=== PATIENT | male | born 1965 | race Caucasian/White ===

== ENCOUNTER 2020-06-27 17:46 | Emergency (ER) | payer OTHER ==
[2020-06-27] MEDS ORDERED: MORPHINE SULFATE 4 MG/ML SYRINGE IVP STA (17:57)
[2020-06-27] MEDS ORDERED: LORazepam 2 MG/ML INJ IV STA ×2 (17:57→18:06)
[2020-06-27] MEDS ORDERED: SODIUM CHLORIDE 0.9% 1,000 ML IV STA ×2 (17:57)
[2020-06-27] MEDS ORDERED: SODIUM CHLORIDE 0.9% 500 ML 500 ML IV STA (17:57)
--- NOTE | 2020-06-27 17:59 | ED ---
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) Previous Visits for Alcohol Intoxication?: No Recent Trauma: Yes Associated Symptoms: denies other symptoms Treatments Prior to Arrival: none Chronic Alcohol Use: Yes <Eusebio Smith - Last Filed: 06/27/20 17:58> <Rafael Thompson - Last Filed: 06/28/20 00:28> - General Stated Complaint: Arm Lac Time Seen by Provider: 06/27/20 17:50 - History of Present Illness Initial Comments: This is a 55-year-old male brought in by EMS, patient significantly intoxicated so poor story for EMS to be patient may have felt to some sort of 10 patient continues to say door or a TV, patient again is intoxicated and has significant laceration to his right wrist bleeding was originally pretty profuse per EMS but is now controlled (Eusebio Smith) - Related Data Home Medications Medication Instructions Recorded Confirmed carBAMazepine [TEGretol] 200 mg PO TID 03/24/15 06/27/20 traMADol HCl [Ultram] 50 - 100 mg PO TID PRN 03/24/15 06/27/20 Atorvastatin Calcium [Lipitor] 40 mg PO DAILY 06/27/20 06/27/20 Citalopram Hydrobromide [CeleXA] 40 mg PO DAILY 06/27/20 06/27/20 Levothyroxine Sodium [Synthroid] 75 mcg PO DAILY 06/27/20 06/27/20 QUEtiapine FUMARATE [QUEtiapine 400 mg PO DAILY 06/27/20 06/27/20 FUMARATE ER] Allergies Allergy/AdvReac Type Severity Reaction Status Date / Time No Known Allergies Allergy Verified 06/27/20 21:34 Review of Systems ROS Other: All systems not noted in ROS Statement are negative. <Eusebio Smith - Last Filed: 06/27/20 17:58> ROS Other: All systems not noted in ROS Statement are negative. <Rafael Thompson - Last Filed: 06/28/20 00:28> ROS Statement: Those systems with pertinent positive or pertinent negative responses have been documented in the HPI. Past Medical History Past Medical History: Hyperlipidemia, Hypertension Additional Past Medical History / Comment(s): arthritis History of Any Multi-Drug Resistant Organisms: None Reported Past Surgical History: Appendectomy Additional Past Surgical History / Comment(s): left hand surgery Past Psychological History: Anxiety, Bipolar, Depression Past Alcohol Use History: None Reported Past Drug Use History: None Reported <Eusebio Smith - Last Filed: 06/27/20 17:58> General Exam General appearance: alert, in no apparent distress Head exam: Present: atraumatic, normocephalic, normal inspection Eye exam: Present: normal appearance, PERRL, EOMI. Absent: scleral icterus, conjunctival injection, periorbital swelling ENT exam: Present: normal exam, mucous membranes moist Neck exam: Present: normal inspection. Absent: tenderness, meningismus, lymphadenopathy Respiratory exam: Present: normal lung sounds bilaterally. Absent: respiratory distress, wheezes, rales, rhonchi, stridor Cardiovascular Exam: Present: regular rate, normal rhythm, normal heart sounds. Absent: systolic murmur, diastolic murmur, rubs, gallop, clicks GI/Abdominal exam: Present: soft, normal bowel sounds. Absent: distended, tenderness, guarding, rebound, rigid Extremities exam: Present: normal inspection, full ROM, normal capillary refill. Absent: tenderness, pedal edema, joint swelling, calf tenderness Back exam: Present: normal inspection Neurological exam: Present: alert, oriented X3, CN II-XII intact Psychiatric exam: Present: normal affect, normal mood Skin exam: Present: warm, dry, intact, normal color. Absent: rash <Eusebio Smith - Last Filed: 06/27/20 17:58> - General Exam Comments Initial Comments: 4 cm laceration to right wrist (Eusebio Smith) Course <Eusebio Smith - Last Filed: 06/27/20 17:58> <Rafael Thompson - Last Filed: 06/28/20 00:28> Vital Signs 06/27/20 06/27/20 06/27/20 17:49 19:15 20:15 Temperature 97.9 F Pulse Rate 98 108 H Respiratory 19 19 17 Rate Blood Pressure 117/97 98/66 101/66 O2 Sat by Pulse 97 99 100 Oximetry 06/27/20 06/27/20 06/27/20 21:04 22:00 23:00 Temperature Pulse Rate 98 100 98 Respiratory 17 18 19 Rate Blood Pressure 99/61 106/69 120/67 O2 Sat by Pulse 100 100 99 Oximetry 06/28/20 00:00 Temperature Pulse Rate 98 Respiratory 19 Rate Blood Pressure 105/72 O2 Sat by Pulse 100 Oximetry - Reevaluation(s) Reevaluation #1: 06/27/20 17:58 Medical records reviewed (Eusebio Smith) Reevaluation #2: 06/28/20 00:27 I was asked to enter the patient's disposition as Dr. Smith Had signed out of his computer. No other interaction (Rafael Thompson) Medical Decision Making - Lab Data Result diagrams: 06/27/20 18:02 06/27/20 18:02 <Rafael Thompson - Last Filed: 06/28/20 00:28> - Lab Data Lab Results 06/27/20 06/27/20 Range/Units 18:02 18:02 WBC 13.8 H (3.8-10.6) k/uL RBC 3.32 L (4.30-5.90) m/uL Hgb 11.7 L (13.0-17.5) gm/dL Hct 36.0 L (39.0-53.0) % MCV 108.5 H (80.0-100.0) fL MCH 35.3 H (25.0-35.0) pg MCHC 32.5 (31.0-37.0) g/dL RDW 12.8 (11.5-15.5) % Plt Count 116 L (150-450) k/uL Neutrophils % 84 % Lymphocytes % 10 % Monocytes % 5 % Eosinophils % 1 % Basophils % 0 % Neutrophils # 11.6 H (1.3-7.7) k/uL Lymphocytes # 1.4 (1.0-4.8) k/uL Monocytes # 0.6 (0-1.0) k/uL Eosinophils # 0.1 (0-0.7) k/uL Basophils # 0.0 (0-0.2) k/uL Macrocytosis Moderate Sodium 143 (137-145) mmol/L Potassium 3.9 (3.5-5.1) mmol/L Chloride 113 H (98-107) mmol/L Carbon Dioxide 18 L (22-30) mmol/L Anion Gap 12 mmol/L BUN 16 (9-20) mg/dL Creatinine 1.04 (0.66-1.25) mg/dL Est GFR (CKD-EPI)AfAm >90 (>60 ml/min/1.73 sqM) Est GFR (CKD-EPI)NonAf 80 (>60 ml/min/1.73 sqM) Glucose 104 H (74-99) mg/dL Calcium 8.2 L (8.4-10.2) mg/dL Phosphorus 4.1 (2.5-4.5) mg/dL Magnesium 2.0 (1.6-2.3) mg/dL Total Bilirubin 0.6 (0.2-1.3) mg/dL AST 50 (17-59) U/L ALT 37 (4-49) U/L Alkaline Phosphatase 99 (38-126) U/L Total Protein 6.2 L (6.3-8.2) g/dL Albumin 3.8 (3.5-5.0) g/dL Lipase 97 (23-300) U/L Serum Alcohol 130 mg/dL Disposition <Eusebio Smith - Last Filed: 06/27/20 17:58> Is patient prescribed a controlled substance at d/c from ED?: No <Rafael Thompson - Last Filed: 06/28/20 00:28> Clinical Impression: Laceration, Alcohol intoxication Disposition: HOME SELF-CARE Condition: Fair Instructions (If sedation given, give patient instructions): Laceration (DC), Alcohol Intoxication (ED) Referrals: None,Stated [Primary Care Provider] - 1-2 days
[2020-06-27 18:14] LABS: Basophils % (A) 0 %; Eosinophils # (A) 0.1 k/uL (0-0.7); Eosinophils % (A) 1 %; HGB 11.7 gm/dL (13.0-17.5); Lymphocytes # (A) 1.4 k/uL (1.0-4.8); Lymphocytes % (A) 10 %; MCH 35.3 pg (25.0-35.0); MCHC 32.5 g/dL (31.0-37.0); MCV 108.5 fL (80.0-100.0); Macrocytosis Moderate; Mean Platelet Volume 8.9; Monocytes # (A) 0.6 k/uL (0-1.0); Monocytes % (A) 5 %; Neutrophils # (A) 11.6 k/uL (1.3-7.7); Neutrophils % (A) 84 %; Platelet Count 116 k/uL (150-450); RBC 3.32 m/uL (4.30-5.90); RDW 12.8 % (11.5-15.5); WBC 13.8 k/uL (3.8-10.6)
[2020-06-27 18:22] LABS: ALT 37 U/L (4-49); AST 50 U/L (17-59); African American GFR (CKD) >90 (>60 ml/min/1.73 sqM); Albumin 3.8 g/dL (3.5-5.0); Alkaline Phosphatase 99 U/L (38-126); Anion Gap 12 mmol/L; Blood Urea Nitrogen 16 mg/dL (9-20); Calcium 8.2 mg/dL (8.4-10.2); Carbon Dioxide 18 mmol/L (22-30); Chloride 113 mmol/L (98-107); Glucose 104 mg/dL (74-99); Lipase 97 U/L (23-300); Non-African American GFR(CKD) 80 (>60 ml/min/1.73 sqM); Phosphorus 4.1 mg/dL (2.5-4.5); Potassium 3.9 mmol/L (3.5-5.1); Sodium 143 mmol/L (137-145); Total Bilirubin 0.6 mg/dL (0.2-1.3); Total Protein 6.2 g/dL (6.3-8.2)
[2020-06-27 18:27] LABS: Alcohol 130 mg/dL
--- NOTE | 2020-06-27 18:37 | XR ---
EXAMINATION TYPE: XR wrist complete RT DATE OF EXAM: 06/27/2020 COMPARISON: NONE HISTORY: Pain TECHNIQUE: 4 views FINDINGS: There is some spurring at the first carpometacarpal joint. There is narrowing of the scapho id trapezium joint space. Metacarpals appear intact. Distal radius and ulna appear intact. 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 No fracture seen. No evidence of a fo reign body.
[2020-06-27] MEDS ORDERED: LIDOCAINE 1%-EPI 1:100,000 20 ML VIAL SQ STA (20:05)
[2020-06-28 01:08] VITALS: BP 112/63; PULSE 99; RESP 18; TEMP 98.1
== END 2020-06-28 01:00 | disposition home or self-care (01) ==
LOC: EC 17:46
DX: S61.511A Laceration without foreign body of right wrist, initial encounter (principal); F10.129 Alcohol abuse with intoxication, unspecified; E78.5 Hyperlipidemia, unspecified; F32.9 Major depressive disorder, single episode, unspecified; F41.9 Anxiety disorder, unspecified; Y90.9 Presence of alcohol in blood, level not specified; Z79.899 Other long term (current) drug therapy; Z79.890 Hormone replacement therapy
CPT/HCPCS: 80053; 83690; 83735; 84100; 85025; 73110; 99284; 96374; 96375; 96361; G0480; J2060; J2270; 80320

== ENCOUNTER 2021-01-27 03:53 | Observation (INO) | payer OTHER ==
[2021-01-27] MEDS ORDERED: SODIUM CHLORIDE 0.9% 500 ML 500 ML IV STA (03:56)
[2021-01-27] MEDS ORDERED: ONDANSETRON 4 MG/2 ML VIAL IVP STA (03:56)
[2021-01-27] MEDS ORDERED: LORazepam 2 MG/ML INJ IV PRN ×3 (03:56)
[2021-01-27] MEDS ORDERED: SODIUM CHLORIDE 0.9% 1,000 ML IV STA ×3 (03:56→05:26)
[2021-01-27] MEDS ORDERED: DIAZEPAM 5 MG/ML 2 ML INJ IVP STA (03:57)
--- NOTE | 2021-01-27 03:58 | ED ---
Weakness HPI - General Stated complaint: Chest Pain Time Seen by Provider: 01/27/21 03:56 Source: RN notes reviewed, old records reviewed Limitations: no limitations - History of Present Illness Initial comments: This is a 55-year-old male DF for evaluation patient presents today for evaluation of nausea vomiting dehydration weakness and alcohol abuse. Patient states he can keep anything down feels very shaky lightheaded. Patient has no recent travel history or sick contacts. Please that he is withdrawing from alcohol MD Complaint: generalized weakness -: days(s) Location: generalized Severity: moderate Severity scale (1-10): 6 Consistency: constant Improves with: none Worsens with: none Context: recent illness, history of similar Associated Symptoms: confusion, loss of appetite, nausea/vomiting - Related Data Home Medications Medication Instructions Recorded Confirmed carBAMazepine [TEGretol] 200 mg PO TID 03/24/15 01/27/21 Atorvastatin Calcium [Lipitor] 40 mg PO HS 06/27/20 01/27/21 Levothyroxine Sodium [Synthroid] 75 mcg PO DAILY 06/27/20 01/27/21 QUEtiapine FUMARATE [QUEtiapine 400 mg PO HS 06/27/20 01/27/21 FUMARATE ER] Previous Rx's Medication Instructions Recorded LORazepam [Ativan] 0.5 mg PO TID 3 Days #9 tab 01/28/21 Pantoprazole [Protonix] 40 mg PO [id number] tablet. 01/28/21 Thiamine [Vitamin B-1] 100 mg PO BID-W/MEALS tab 01/28/21 Allergies Allergy/AdvReac Type Severity Reaction Status Date / Time No Known Allergies Allergy Verified 01/27/21 07:12 Review of Systems ROS Statement: Those systems with pertinent positive or pertinent negative responses have been documented in the HPI. ROS Other: All systems not noted in ROS Statement are negative. Past Medical History Past Medical History: Hyperlipidemia, Hypertension Additional Past Medical History / Comment(s): arthritis History of Any Multi-Drug Resistant Organisms: None Reported Past Surgical History: Appendectomy Additional Past Surgical History / Comment(s): left hand surgery Past Psychological History: Anxiety, Bipolar, Depression Past Alcohol Use History: None Reported Past Drug Use History: None Reported - Past Family History Father Family Medical History: No Reported History Mother Family Medical History: CVA/TIA Additional Family Medical History / Comment(s): Mother had a CVA. She lived into her 90s. General Exam General appearance: anxious, cachectic Head exam: Present: atraumatic, normocephalic, normal inspection Eye exam: Present: normal appearance, PERRL, EOMI. Absent: scleral icterus, conjunctival injection, periorbital swelling ENT exam: Present: normal exam, mucous membranes dry Neck exam: Present: normal inspection. Absent: tenderness, meningismus, lymphadenopathy Respiratory exam: Present: normal lung sounds bilaterally. Absent: respiratory distress, wheezes, rales, rhonchi, stridor Cardiovascular Exam: Present: normal rhythm, tachycardia, normal heart sounds. Absent: systolic murmur, diastolic murmur, rubs, gallop, clicks GI/Abdominal exam: Present: soft, normal bowel sounds. Absent: distended, tenderness, guarding, rebound, rigid Extremities exam: Present: normal inspection, full ROM, normal capillary refill. Absent: tenderness, pedal edema, joint swelling, calf tenderness Back exam: Present: normal inspection Neurological exam: Present: alert, oriented X3, CN II-XII intact Psychiatric exam: Present: normal affect, normal mood Skin exam: Present: warm, dry, intact, normal color. Absent: rash Course Vital Signs 01/27/21 01/27/21 01/27/21 04:06 04:19 04:21 Temperature 98.2 F Pulse Rate 106 H 109 H Pulse Rate [ Pulse Oximetery ] Pulse Rate [ 106 H Right Brachial] Respiratory 21 20 Rate Blood Pressure 98/80 115/94 Blood Pressure [Right Arm] O2 Sat by Pulse 100 100 Oximetry 01/27/21 01/27/21 01/27/21 06:00 06:28 08:50 Temperature Pulse Rate 79 71 101 H Pulse Rate [ Pulse Oximetery ] Pulse Rate [ Right Brachial] Respiratory 18 15 18 Rate Blood Pressure 139/89 128/78 118/87 Blood Pressure [Right Arm] O2 Sat by Pulse 100 100 99 Oximetry 01/27/21 01/27/21 01/27/21 10:12 11:32 13:50 Temperature 98.3 F Pulse Rate 100 94 112 H Pulse Rate [ Pulse Oximetery ] Pulse Rate [ Right Brachial] Respiratory 18 18 18 Rate Blood Pressure 123/79 126/86 130/84 Blood Pressure [Right Arm] O2 Sat by Pulse 98 97 99 Oximetry 01/27/21 01/27/21 01/27/21 14:58 16:07 16:14 Temperature 98.9 F Pulse Rate 106 H Pulse Rate [ 91 Pulse Oximetery ] Pulse Rate [ Right Brachial] Respiratory 18 18 Rate Blood Pressure 139/88 Blood Pressure 133/81 [Right Arm] O2 Sat by Pulse 99 99 Oximetry - Reevaluation(s) Reevaluation #1: Medical record is reviewed Patient symptoms significantly improved here in the ER Patient informed results questions answered EKG Findings - EKG Comments: EKG Findings:: EKG shows sinus tachycardia 111, SC 126 QRS 76 QTC 546 Medical Decision Making - Medical Decision Making 55 male DF for evaluation of dehydration. Alcohol ketoacidosis. Severe alcohol intoxication. Patient be admitted for symptomatic treatment and IV hydration - Lab Data Result diagrams: 01/28/21 06:31 01/28/21 06:31 Lab Results 01/27/21 01/27/21 01/27/21 Range/Units 04:16 04:16 04:16 WBC 21.6 H (3.8-10.6) k/uL RBC 4.73 (4.30-5.90) m/uL Hgb 16.0 (13.0-17.5) gm/dL Hct 47.3 (39.0-53.0) % MCV 100.1 H (80.0-100.0) fL MCH 33.8 (25.0-35.0) pg MCHC 33.8 (31.0-37.0) g/dL RDW 13.1 (11.5-15.5) % Plt Count 254 (150-450) k/uL MPV 7.6 Neutrophils % 90 % Lymphocytes % 6 % Monocytes % 3 % Eosinophils % 0 % Basophils % 0 % Neutrophils # 19.5 H (1.3-7.7) k/uL Lymphocytes # 1.2 (1.0-4.8) k/uL Monocytes # 0.6 (0-1.0) k/uL Eosinophils # 0.1 (0-0.7) k/uL Basophils # 0.0 (0-0.2) k/uL PT 11.4 (9.0-12.0) sec INR 1.1 (<1.2) APTT 21.7 L (22.0-30.0) sec VBG pH (7.31-7.41) VBG pCO2 (37-51) mmHg VBG HCO3 (24-28) mmol/L Sodium (137-145) mmol/L Potassium (3.5-5.1) mmol/L Chloride (98-107) mmol/L Carbon Dioxide (22-30) mmol/L Anion Gap mmol/L BUN (9-20) mg/dL Creatinine (0.66-1.25) mg/dL Est GFR (CKD-EPI)AfAm (>60 ml/min/1.73 sqM) Est GFR (CKD-EPI)NonAf (>60 ml/min/1.73 sqM) Glucose (74-99) mg/dL Lactic Ac Sepsis Rflx Plasma Lactic Acid Rolf (0.7-2.0) mmol/L Calcium (8.4-10.2) mg/dL Phosphorus (2.5-4.5) mg/dL Magnesium (1.6-2.3) mg/dL Total Bilirubin (0.2-1.3) mg/dL AST (17-59) U/L ALT (4-49) U/L Alkaline Phosphatase (38-126) U/L Creatine Kinase (55-170) U/L Troponin I (0.000-0.034) ng/mL Total Protein (6.3-8.2) g/dL Albumin (3.5-5.0) g/dL Lipase (23-300) U/L Urine Color Yellow Urine Appearance Clear (Clear) Urine pH 6.5 (5.0-8.0) Ur Specific Mcdaniels 1.034 (1.001-1.035) Urine Protein 1+ H (Negative) Urine Glucose (UA) Negative (Negative) Urine Ketones 1+ H (Negative) Urine Blood Negative (Negative) Urine Nitrite Negative (Negative) Urine Bilirubin Negative (Negative) Urine Urobilinogen <2.0 (<2.0) mg/dL Ur Leukocyte Esterase Negative (Negative) Urine RBC 4 (0-5) /hpf Urine WBC 1 (0-5) /hpf Urine Mucus Rare H (None) /hpf Serum Alcohol mg/dL 01/27/21 01/27/21 01/27/21 Range/Units 04:16 04:16 04:16 WBC (3.8-10.6) k/uL RBC (4.30-5.90) m/uL Hgb (13.0-17.5) gm/dL Hct (39.0-53.0) % MCV (80.0-100.0) fL MCH (25.0-35.0) pg MCHC (31.0-37.0) g/dL RDW (11.5-15.5) % Plt Count (150-450) k/uL MPV Neutrophils % % Lymphocytes % % Monocytes % % Eosinophils % % Basophils % % Neutrophils # (1.3-7.7) k/uL Lymphocytes # (1.0-4.8) k/uL Monocytes # (0-1.0) k/uL Eosinophils # (0-0.7) k/uL Basophils # (0-0.2) k/uL PT (9.0-12.0) sec INR (<1.2) APTT (22.0-30.0) sec VBG pH (7.31-7.41) VBG pCO2 (37-51) mmHg VBG HCO3 (24-28) mmol/L Sodium 142 (137-145) mmol/L Potassium 4.3 (3.5-5.1) mmol/L Chloride 105 (98-107) mmol/L Carbon Dioxide 20 L (22-30) mmol/L Anion Gap 17 mmol/L BUN 12 (9-20) mg/dL Creatinine 0.81 (0.66-1.25) mg/dL Est GFR (CKD-EPI)AfAm >90 (>60 ml/min/1.73 sqM) Est GFR (CKD-EPI)NonAf >90 (>60 ml/min/1.73 sqM) Glucose 106 H (74-99) mg/dL Lactic Ac Sepsis Rflx Plasma Lactic Acid Rolf 5.2 H* (0.7-2.0) mmol/L Calcium 9.3 (8.4-10.2) mg/dL Phosphorus 2.6 (2.5-4.5) mg/dL Magnesium 1.7 (1.6-2.3) mg/dL Total Bilirubin 0.3 (0.2-1.3) mg/dL AST 62 H (17-59) U/L ALT 50 H (4-49) U/L Alkaline Phosphatase 124 (38-126) U/L Creatine Kinase 544 H (55-170) U/L Troponin I <0.012 (0.000-0.034) ng/mL Total Protein 7.6 (6.3-8.2) g/dL Albumin 4.8 (3.5-5.0) g/dL Lipase 105 (23-300) U/L Urine Color Urine Appearance (Clear) Urine pH (5.0-8.0) Ur Specific Mcdaniels (1.001-1.035) Urine Protein (Negative) Urine Glucose (UA) (Negative) Urine Ketones (Negative) Urine Blood (Negative) Urine Nitrite (Negative) Urine Bilirubin (Negative) Urine Urobilinogen (<2.0) mg/dL Ur Leukocyte Esterase (Negative) Urine RBC (0-5) /hpf Urine WBC (0-5) /hpf Urine Mucus (None) /hpf Serum Alcohol 14 mg/dL 01/27/21 01/27/21 Range/Units 04:16 05:28 WBC (3.8-10.6) k/uL RBC (4.30-5.90) m/uL Hgb (13.0-17.5) gm/dL Hct (39.0-53.0) % MCV (80.0-100.0) fL MCH (25.0-35.0) pg MCHC (31.0-37.0) g/dL RDW (11.5-15.5) % Plt Count (150-450) k/uL MPV Neutrophils % % Lymphocytes % % Monocytes % % Eosinophils % % Basophils % % Neutrophils # (1.3-7.7) k/uL Lymphocytes # (1.0-4.8) k/uL Monocytes # (0-1.0) k/uL Eosinophils # (0-0.7) k/uL Basophils # (0-0.2) k/uL PT (9.0-12.0) sec INR (<1.2) APTT (22.0-30.0) sec VBG pH 7.53 H (7.31-7.41) VBG pCO2 23 L (37-51) mmHg VBG HCO3 19 L (24-28) mmol/L Sodium (137-145) mmol/L Potassium (3.5-5.1) mmol/L Chloride (98-107) mmol/L Carbon Dioxide (22-30) mmol/L Anion Gap mmol/L BUN (9-20) mg/dL Creatinine (0.66-1.25) mg/dL Est GFR (CKD-EPI)AfAm (>60 ml/min/1.73 sqM) Est GFR (CKD-EPI)NonAf (>60 ml/min/1.73 sqM) Glucose (74-99) mg/dL Lactic Ac Sepsis Rflx Y Plasma Lactic Acid Rolf (0.7-2.0) mmol/L Calcium (8.4-10.2) mg/dL Phosphorus (2.5-4.5) mg/dL Magnesium (1.6-2.3) mg/dL Total Bilirubin (0.2-1.3) mg/dL AST (17-59) U/L ALT (4-49) U/L Alkaline Phosphatase (38-126) U/L Creatine Kinase (55-170) U/L Troponin I (0.000-0.034) ng/mL Total Protein (6.3-8.2) g/dL Albumin (3.5-5.0) g/dL Lipase (23-300) U/L Urine Color Urine Appearance (Clear) Urine pH (5.0-8.0) Ur Specific Mcdaniels (1.001-1.035) Urine Protein (Negative) Urine Glucose (UA) (Negative) Urine Ketones (Negative) Urine Blood (Negative) Urine Nitrite (Negative) Urine Bilirubin (Negative) Urine Urobilinogen (<2.0) mg/dL Ur Leukocyte Esterase (Negative) Urine RBC (0-5) /hpf Urine WBC (0-5) /hpf Urine Mucus (None) /hpf Serum Alcohol mg/dL Disposition Clinical Impression: Alcoholic ketoacidosis Disposition: ADMITTED IP TO THIS HOSP Condition: Fair Is patient prescribed a controlled substance at d/c from ED?: No
[2021-01-27] MEDS ORDERED: THIAMINE 100 MG/ML 2 ML VIAL IM STA (04:01)
[2021-01-27 04:26] LABS: Basophils % (A) 0 %; Eosinophils # (A) 0.1 k/uL (0-0.7); Eosinophils % (A) 0 %; HCT 47.3 % (39.0-53.0); Lymphocytes # (A) 1.2 k/uL (1.0-4.8); Lymphocytes % (A) 6 %; MCH 33.8 pg (25.0-35.0); MCHC 33.8 g/dL (31.0-37.0); MCV 100.1 fL (80.0-100.0); Mean Platelet Volume 7.6; Monocytes # (A) 0.6 k/uL (0-1.0); Monocytes % (A) 3 %; Neutrophils # (A) 19.5 k/uL (1.3-7.7); Neutrophils % (A) 90 %; Platelet Count 254 k/uL (150-450); RBC 4.73 m/uL (4.30-5.90); RDW 13.1 % (11.5-15.5); VBG PH 7.53 (7.31-7.41); WBC 21.6 k/uL (3.8-10.6)
[2021-01-27 04:38] LABS: ALT 50 U/L (4-49); AST 62 U/L (17-59); African American GFR (CKD) >90 (>60 ml/min/1.73 sqM); Albumin 4.8 g/dL (3.5-5.0); Alcohol 14 mg/dL; Alkaline Phosphatase 124 U/L (38-126); Anion Gap 17 mmol/L; Blood Urea Nitrogen 12 mg/dL (9-20); Calcium 9.3 mg/dL (8.4-10.2); Carbon Dioxide 20 mmol/L (22-30); Chloride 105 mmol/L (98-107); Creatine Kinase 544 U/L (55-170); Glucose 106 mg/dL (74-99); Lipase 105 U/L (23-300); Magnesium 1.7 mg/dL (1.6-2.3); Non-African American GFR(CKD) >90 (>60 ml/min/1.73 sqM); Phosphorus 2.6 mg/dL (2.5-4.5); Potassium 4.3 mmol/L (3.5-5.1); Sodium 142 mmol/L (137-145); Total Bilirubin 0.3 mg/dL (0.2-1.3); Total Protein 7.6 g/dL (6.3-8.2)
[2021-01-27 04:42] LABS: INR 1.1 (<1.2); Prothrombin Time 11.4 sec (9.0-12.0)
[2021-01-27 05:02] LABS: Partial Thromboplastin Time 21.7 sec (22.0-30.0)
[2021-01-27] MEDS ORDERED: KETOROLAC 15 MG/ML 1 ML VIAL IVP STA (05:26)
[2021-01-27] MEDS ORDERED: ACETAMINOPHEN IV (For NPO) 1,000 MG in EMPTY BAG 1 BAG IVPB STA (05:28)
--- NOTE | 2021-01-27 05:39 | XR ---
EXAM: XR Abdomen, 2 Views and XR Chest, 1 View CLINICAL HISTORY: Reason: pain TECHNIQUE: Frontal view of the chest, frontal view of the abdomen/pelvis and upright or decubitus view of the abdomen. COMPARISON: No relevant prior studies available. FINDINGS: Lungs: Normal lung volumes. No consolidation. No pulmonary edema. Pleural space: Unremarkable. No pneumothorax. Heart: Unremarkable. No cardiomegaly. Mediastinum: Unremarkable. No mediastinal widening or shift. Intraperitoneal space: No free air. Gastrointestinal tract: Unremarkable. No dilation. Bones/joints: Unremarkable. IMPRESSION: Normal chest, abdomen and pelvis x-rays.
[2021-01-27] MEDS ORDERED: MORPHINE SULFATE 4 MG/ML SYRINGE IV PRN (06:09)
[2021-01-27] MEDS: THIAMINE 100 MG TAB PO SCH ×2 (08:58→16:59)
[2021-01-27] MEDS: DEXTROSE 5%-0.45% NACL 1,000 ML IV SCH ×2 (08:59→16:59)
[2021-01-27 09:38] LABS: Basophils % (A) 0 %; Eosinophils % (A) 0 %; HCT 41.1 % (39.0-53.0); HGB 13.8 gm/dL (13.0-17.5); Lymphocytes # (A) 1.9 k/uL (1.0-4.8); Lymphocytes % (A) 14 %; MCH 34.4 pg (25.0-35.0); MCHC 33.6 g/dL (31.0-37.0); MCV 102.2 fL (80.0-100.0); Macrocytosis Slight; Mean Platelet Volume 7.8; Monocytes # (A) 0.7 k/uL (0-1.0); Monocytes % (A) 5 %; Neutrophils # (A) 11.2 k/uL (1.3-7.7); Neutrophils % (A) 81 %; Platelet Count 218 k/uL (150-450); RBC 4.02 m/uL (4.30-5.90); RDW 13.2 % (11.5-15.5); WBC 13.8 k/uL (3.8-10.6)
[2021-01-27 09:57] LABS: ALT 40 U/L (4-49); AST 46 U/L (17-59); African American GFR (CKD) >90 (>60 ml/min/1.73 sqM); Albumin 3.6 g/dL (3.5-5.0); Albumin/Globulin Ratio 1.4; Alkaline Phosphatase 93 U/L (38-126); Anion Gap 6 mmol/L; Blood Urea Nitrogen 12 mg/dL (9-20); Calcium 7.6 mg/dL (8.4-10.2); Carbon Dioxide 26 mmol/L (22-30); Chloride 110 mmol/L (98-107); Globulin 2.5 g/dL; Glucose 98 mg/dL (74-99); Non-African American GFR(CKD) >90 (>60 ml/min/1.73 sqM); Potassium 4.3 mmol/L (3.5-5.1); Sodium 142 mmol/L (137-145); Total Bilirubin 0.2 mg/dL (0.2-1.3); Total Protein 6.1 g/dL (6.3-8.2)
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
--- NOTE | 2021-01-27 12:42 | XR ---
EXAMINATION TYPE: XR chest 2V DATE OF EXAM: 01/27/2021 COMPARISON: 03/24/2015 INDICATION: Elevated white count and lactic acid TECHNIQUE: Single frontal view of the chest is obtained. FINDINGS: The heart size is normal. The pulmonary vasculature is normal. There is a large rounded nodule measuring 2.3 cm in the periphery of the right upper lung field near the third rib. Workup for pulmonary nodule is recommended. Some mild linear opacities are at the left lung base. IMPRESSION: 1. Mild left basilar infiltrate. Correlate for atelectasis. 2. Nodule within the periphery of the right upper lobe. Additional workup with CT is recommended.
[2021-01-27 15:15] LABS: Appearance,Urine Clear (Clear); Bilirubin,Urine Negative (Negative); Blood,Urine Negative (Negative); Color,Urine Yellow; Glucose,Urine (UA) Negative (Negative); Ketones,Urine 1+ (Negative); Leukocyte Esterase,Urine Negative (Negative); Mucus,Urine Rare /hpf; Nitrite,Urine Negative (Negative); PH, Urine 6.5 (5.0-8.0); Protein,Urine 1+ (Negative); RBC,Urine 4 /hpf (0-5); Specific Gravity,Urine 1.034 (1.001-1.035); Urobilinogen,Urine <2.0 mg/dL (<2.0); WBC,Urine 1 /hpf (0-5)
[2021-01-27] MEDS: ACETAMINOPHEN TAB 325 MG TAB PO PRN (16:59)
[2021-01-27] MEDS: carBAMazepine 200 MG TAB PO SCH (19:51)
[2021-01-27] MEDS: QUEtiapine 200 MG TAB PO SCH (19:51)
[2021-01-27] MEDS ORDERED: ATORVASTATIN 40 MG TAB PO SCH (21:00)
[2021-01-28] MEDS: DEXTROSE 5%-0.45% NACL 1,000 ML IV SCH (03:45)
[2021-01-28] MEDS ORDERED: LEVOTHYROXINE 75 MCG TAB PO SCH (06:30)
[2021-01-28] MEDS: ACETAMINOPHEN TAB 325 MG TAB PO PRN (07:28)
[2021-01-28] MEDS: THIAMINE 100 MG TAB PO SCH (07:28)
[2021-01-28] MEDS: QUEtiapine 200 MG TAB PO SCH (07:28)
[2021-01-28] MEDS: carBAMazepine 200 MG TAB PO SCH (07:28)
[2021-01-28] MEDS ORDERED: PANTOPRAZOLE 40 MG TABLET PO SCH (07:30)
[2021-01-28 08:12] VITALS: BP 120/68; PULSE 68; RESP 16; TEMP 97.9
[2021-01-28] MEDS ORDERED: ENOXAPARIN 40 MG/0.4 ML SYRINGE SQ SCH (09:00)
[2021-01-28 10:00] LABS: Basophils # (A) 0.04 X 10*3/uL (0.00-0.10); Basophils % (A) 0.5 %; Eosinophils # (A) 0.12 X 10*3/uL (0.04-0.35); Eosinophils % (A) 1.6 %; HCT 38.3 % (39.6-50.0); Lymphocytes # (A) 1.73 X 10*3/uL (0.90-5.00); Lymphocytes % (A) 22.5 %; MCH 34.2 pg (27.0-32.0); MCHC 33.9 g/dL (32.0-37.0); MCV 100.8 fL (80.0-97.0); Mean Platelet Volume 11.2 fL (9.5-12.2); Monocytes # (A) 0.77 X 10*3/uL (0.20-1.00); Neutrophils % (A) 65.1 %; Platelet Count 192 X 10*3/uL (140-440); RDW 14.1 % (11.5-14.5); WBC 7.68 X 10*3/uL (4.50-10.00)
--- NOTE | 2021-01-28 13:10 | P.DS ---
Providers Date of admission: 01/27/21 06:09 Expected date of discharge: 01/28/21 Attending physician: Ina Upton Primary care physician: Janel Thompson Hospital Course: Diagnoses on discharge: 1. Alcohol intoxication. Patient has been started on CIWA protocol 2. Elevated lactic acidosis and WBC. Repeat lactic 1.0 and white blood cell is trending down. Blood culture, urine culture and chest x-ray ordered 3. Nausea and vomiting likely secondary to alcohol intoxication. Acute abdominal series negative. Lipase within normal limits liver enzymes improving 4. History of hyperlipidemia 5. Essential hypertension 6. History of anxiety and bipolar 7. Lung nodule in the periphery of the right upper lobe, measuring 2.3 cm recommendation by radiology is to proceed with computed tomography scan of the chest, patient was offered that but he was very eager to go home, this should be done as outpatient as soon as possible. I am including this in the discharge summary for his primary care physician. Hospital course: This is a 55-year-old male patient of Dr. Thompson. Patient presented to the ER with complaints of alcohol intoxication. Patient reports that he drink a pint of peppermint schnapps was starting to not feel good. Patient reports he tripped and fell over clutter on its floor and decided to call EMS for further a ssistance. Patient denies hitting his head or any injuries to extremities small abrasion to right elbow. Patient reports he drinks approximately 3 pints a week and has been doing this for approximately 20 years. Patient denies any recent illness. Patient did report he was nauseous while intoxicated. Patient has a past medical history of hyperlipidemia hypertension anxiety bipolar and depressi on. Initial lactic acid upon admission 5.2. Repeat lactic acid 1.0. White blood cell elevated at 21.6. Today's white blood cell 13.8. Serum alcohol was 14. Acute abdominal series completed showing normal chest abdomen and pelvis. Lipase within normal limits. Patient has remained afebrile. Denies any acute complaints. Patient denies chest pain or shortness breath. Patient denies nausea vomiting or diarrhea. Patient denies any urinary burning or frequency. Due to elevated lactic acid and white blood cell count will order chest x-ray blood cultures and urine culture area patient has been started on alcohol withdrawal protocol. On 01/28/2021 patient was seen and examined on the medical floor he is alert and oriented 3 in no apparent distress there is no fever or chills no headache or dizziness no chest pain no shortness of breath no cough no nausea or vomiting no abdominal pain no diarrhea no blood in the stools turning with urination no frequency or urgency and no hematuria. Laboratory data are all back to normal his white blood count at the time of discharge was 7.68 hemoglobin 13 plasma lactic acid was down to 1.0 patient was very eager to go home abnormality on chest x-ray was explained to him he was offered a computed tomography scan of the chest at this time however he was not interested and he wanted to go home this should be done as outpatient as soon as possible. Patient Condition at Discharge: Fair Plan - Discharge Summary Discharge Rx Participant: No New Discharge Prescriptions: New Thiamine [Vitamin B-1] 100 mg PO BID-W/MEALS tab LORazepam [Ativan] 0.5 mg PO TID 3 Days #9 tab Pantoprazole [Protonix] 40 mg PO AC-BRKFST tablet.dr Dennison carBAMazepine [TEGretol] 200 mg PO TID Levothyroxine Sodium [Synthroid] 75 mcg PO DAILY QUEtiapine FUMARATE [QUEtiapine FUMARATE ER] 400 mg PO HS Atorvastatin Calcium [Lipitor] 40 mg PO HS Discharge Medication List carBAMazepine [TEGretol] 200 mg PO TID 03/24/15 [History] Atorvastatin Calcium [Lipitor] 40 mg PO HS 06/27/20 [History] Levothyroxine Sodium [Synthroid] 75 mcg PO DAILY 06/27/20 [History] QUEtiapine FUMARATE [QUEtiapine FUMARATE ER] 400 mg PO HS 06/27/20 [History] LORazepam [Ativan] 0.5 mg PO TID 3 Days #9 tab 01/28/21 [Rx] Pantoprazole [Protonix] 40 mg PO AC-BRKFST tablet. 01/28/21 [Rx] Thiamine [Vitamin B-1] 100 mg PO BID-W/MEALS tab 01/28/21 [Rx] Follow up Appointment(s)/Referral(s): Janel Thompson MD [Primary Care Provider] - 1-2 days (office closed for lunch at time of discharge. Patient to make his own appointment. ) Patient Instructions/Handouts: Abuse of Alcohol (DC), Alcohol Withdrawal (DC)
[2021-01-28 14:32] LABS: African American GFR (CKD) 115.7 (60.0-200.0); Albumin 3.8 g/dL (3.80-4.90); Albumin/Globulin Ratio 1.81 (1.60-3.17); Anion Gap 6.7 mmol/L (4.00-12.00); BUN/Creat Ratio 12.5 Ratio (12.00-20.00); Calcium 8.1 mg/dL (8.7-10.3); Carbon Dioxide 23.3 mmol/L (21.6-31.8); Globulin 2.1 g/dL (1.6-3.3); Magnesium 2.2 mg/dL (1.5-2.4); Non-African American GFR(CKD) 99.9 (60.0-200.0); Phosphorus 2.9 mg/dL (2.4-5.1); Potassium 3.8 mmol/L (3.5-5.5); Total Bilirubin 0.5 mg/dL (0.3-1.2); Total Protein 5.9 g/dL (6.2-8.2)
== END 2021-01-28 12:31 ==
LOC: EC 03:53 → 6NMEDSUR 06:09
PROVIDERS: ADMIT Internal Medicine; ATTEND Internal Medicine
DX: F10.129 Alcohol abuse with intoxication, unspecified (principal); E87.2 Acidosis; R11.2 Nausea with vomiting, unspecified; E78.5 Hyperlipidemia, unspecified; I10 Essential (primary) hypertension; Z20.822 Contact with and (suspected) exposure to COVID-19; F41.9 Anxiety disorder, unspecified; F31.9 Bipolar disorder, unspecified; R91.1 Solitary pulmonary nodule; S50.311A Abrasion of right elbow, initial encounter; W01.0XXA Fall on same level from slipping, tripping and stumbling without subsequent striking against object, initial encounter; F17.200 Nicotine dependence, unspecified, uncomplicated; M19.90 Unspecified osteoarthritis, unspecified site; E07.9 Disorder of thyroid, unspecified; Z79.899 Other long term (current) drug therapy; Z79.890 Hormone replacement therapy; Z90.89 Acquired absence of other organs; Z87.81 Personal history of (healed) traumatic fracture; Z82.3 Family history of stroke
CPT/HCPCS: 96376; 96361 ×3; 96372; 96375 ×2; 96368; 96365; 96367; 99285; 36415; 94760; 93005; 80053 ×2; 82550; 82803; 83605; 83690; 83735 ×2; 84100 ×2; 84484; 85025 ×2; 85610; 85730; 81001; 87040; 87635; 74022; 71046; G0378 ×2; G0480; J3360; J2405; J0696; J1650; J0131; J1885; 80320

== ENCOUNTER 2021-06-12 06:55 | Emergency (ER) | payer OTHER ==
[2021-06-12 07:03] VITALS: TEMP 98.9
[2021-06-12] MEDS ORDERED: SODIUM CHLORIDE 0.9% 2,000 ML IV STA (07:25)
--- NOTE | 2021-06-12 07:30 | ED ---
Alcohol HPI - General Chief Complaint: Alcohol Stated Complaint: ETOH Time Seen by Provider: 06/12/21 06:59 Source: patient, RN notes reviewed Mode of arrival: EMS Limitations: altered mental status - History of Present Illness Initial Comments: Patient is a 56-year-old male presented to the ED for acute intoxication. Patient states that he had 1 pint of liquor around 5:00 this morning was brought into ED by EMS. Patient voiced complaint of stomach discomfort with nausea and vomiting, no other complaint was voiced. Patient exam is limited due to intoxication and inability to answer questions. - Related Data Home Medications Medication Instructions Recorded Confirmed carBAMazepine [TEGretol] 200 mg PO TID 03/24/15 06/12/21 Atorvastatin Calcium [Lipitor] 40 mg PO HS 06/27/20 06/12/21 Levothyroxine Sodium [Synthroid] 75 mcg PO DAILY 06/27/20 06/12/21 QUEtiapine FUMARATE [QUEtiapine 400 mg PO HS 06/27/20 06/12/21 FUMARATE ER] Citalopram Hydrobromide 40 mg PO DAILY 06/12/21 06/12/21 [Citalopram HBr] traMADol HCL 50 - 100 mg PO QID PRN 06/12/21 06/12/21 Previous Rx's Medication Instructions Recorded Pantoprazole [Protonix] 40 mg PO AC-BRKFST tablet. 01/28/21 Thiamine [Vitamin B-1] 100 mg PO BID-W/MEALS tab 01/28/21 Allergies Allergy/AdvReac Type Severity Reaction Status Date / Time No Known Allergies Allergy Verified 01/27/21 07:12 Review of Systems ROS Statement: Those systems with pertinent positive or pertinent negative responses have been documented in the HPI. ROS Other: All systems not noted in ROS Statement are negative. Past Medical History Past Medical History: Hyperlipidemia, Hypertension Additional Past Medical History / Comment(s): arthritis History of Any Multi-Drug Resistant Organisms: None Reported Past Surgical History: Appendectomy Additional Past Surgical History / Comment(s): left hand surgery Past Anesthesia/Blood Transfusion Reactions: No Reported Reaction Past Psychological History: Anxiety, Bipolar, Depression Past Alcohol Use History: None Reported Past Drug Use History: None Reported - Past Family History Father Family Medical History: No Reported History Mother Family Medical History: CVA/TIA Additional Family Medical History / Comment(s): Mother had a CVA. She lived into her 90s. General Exam Limitations: no limitations General appearance: alert, in no apparent distress, appears intoxicated Eye exam: Present: normal appearance, PERRL, EOMI. Absent: scleral icterus, conjunctival injection, periorbital swelling ENT exam: Present: normal exam, mucous membranes moist Neck exam: Present: normal inspection. Absent: tenderness, meningismus, lymphadenopathy Respiratory exam: Present: normal lung sounds bilaterally. Absent: respiratory distress, wheezes, rales, rhonchi, stridor Cardiovascular Exam: Present: regular rate, normal rhythm, normal heart sounds. Absent: systolic murmur, diastolic murmur, rubs, gallop, clicks GI/Abdominal exam: Present: soft, normal bowel sounds. Absent: distended, tenderness, guarding, rebound, rigid Neurological exam: Present: altered Skin exam: Present: warm, dry, intact, normal color. Absent: rash Course Vital Signs 06/12/21 06/12/21 06:57 09:02 Temperature 98.9 F Pulse Rate 91 Respiratory 22 18 Rate Blood Pressure 126/83 O2 Sat by Pulse 100 Oximetry Medical Decision Making - Medical Decision Making 56-year-old presented for alcohol intoxication. Patient feels greatly improved after 2 L of fluids patient does have a lactic acidosis related to alcohol use. Patient offered admission patient refuses states he feels comfortable being discharged and return for any worsening symptoms. He understands the risk patient is sober at this time. - Lab Data Result diagrams: 06/12/21 07:57 06/12/21 08:30 Lab Results 06/12/21 06/12/21 06/12/21 Range/Units 07:57 07:57 08:30 WBC 10.4 (3.8-10.6) k/uL RBC 4.47 (4.30-5.90) m/uL Hgb 15.3 (13.0-17.5) gm/dL Hct 46.5 (39.0-53.0) % MCV 103.9 H (80.0-100.0) fL MCH 34.3 (25.0-35.0) pg MCHC 33.0 (31.0-37.0) g/dL RDW 13.4 (11.5-15.5) % Plt Count 293 (150-450) k/uL MPV 8.5 Neutrophils % 77 % Lymphocytes % 13 % Monocytes % 6 % Eosinophils % 1 % Basophils % 1 % Neutrophils # 8.0 H (1.3-7.7) k/uL Lymphocytes # 1.4 (1.0-4.8) k/uL Monocytes # 0.6 (0-1.0) k/uL Eosinophils # 0.1 (0-0.7) k/uL Basophils # 0.1 (0-0.2) k/uL Macrocytosis Slight Sodium 145 (137-145) mmol/L Potassium 3.7 (3.5-5.1) mmol/L Chloride 114 H (98-107) mmol/L Carbon Dioxide 19 L (22-30) mmol/L Anion Gap 12 mmol/L BUN 13 (9-20) mg/dL Creatinine 0.71 (0.66-1.25) mg/dL Est GFR (CKD-EPI)AfAm >90 (>60 ml/min/1.73 sqM) Est GFR (CKD-EPI)NonAf >90 (>60 ml/min/1.73 sqM) Glucose 99 (74-99) mg/dL Plasma Lactic Acid Rolf 4.0 H* (0.7-2.0) mmol/L Calcium 8.2 L (8.4-10.2) mg/dL Magnesium 1.8 (1.6-2.3) mg/dL Total Bilirubin 0.2 (0.2-1.3) mg/dL AST 26 (17-59) U/L ALT 28 (4-49) U/L Alkaline Phosphatase 87 (38-126) U/L Total Protein 6.7 (6.3-8.2) g/dL Albumin 3.9 (3.5-5.0) g/dL Amylase 79 (30-110) U/L Lipase 64 (23-300) U/L Serum Alcohol 90 mg/dL Disposition Clinical Impression: Alcoholic intoxication Disposition: HOME SELF-CARE Condition: Stable Instructions (If sedation given, give patient instructions): Alcohol Intoxication (ED) Additional Instructions: Please return to the Emergency Department if symptoms worsen or any other concerns. Is patient prescribed a controlled substance at d/c from ED?: No Referrals: Janel Thompson MD [Primary Care Provider] - 1-2 days Time of Disposition: 10:52
[2021-06-12 08:25] LABS: Basophils # (A) 0.1 k/uL (0-0.2); Basophils % (A) 1 %; Eosinophils # (A) 0.1 k/uL (0-0.7); Eosinophils % (A) 1 %; HCT 46.5 % (39.0-53.0); HGB 15.3 gm/dL (13.0-17.5); Lymphocytes # (A) 1.4 k/uL (1.0-4.8); Lymphocytes % (A) 13 %; MCH 34.3 pg (25.0-35.0); MCV 103.9 fL (80.0-100.0); Macrocytosis Slight; Mean Platelet Volume 8.5; Monocytes # (A) 0.6 k/uL (0-1.0); Monocytes % (A) 6 %; Neutrophils % (A) 77 %; Platelet Count 293 k/uL (150-450); RBC 4.47 m/uL (4.30-5.90); RDW 13.4 % (11.5-15.5); WBC 10.4 k/uL (3.8-10.6)
[2021-06-12 09:13] LABS: ALT 28 U/L (4-49); AST 26 U/L (17-59); African American GFR (CKD) >90 (>60 ml/min/1.73 sqM); Albumin 3.9 g/dL (3.5-5.0); Alkaline Phosphatase 87 U/L (38-126); Amylase 79 U/L (30-110); Anion Gap 12 mmol/L; Blood Urea Nitrogen 13 mg/dL (9-20); Calcium 8.2 mg/dL (8.4-10.2); Carbon Dioxide 19 mmol/L (22-30); Chloride 114 mmol/L (98-107); Glucose 99 mg/dL (74-99); Lipase 64 U/L (23-300); Magnesium 1.8 mg/dL (1.6-2.3); Non-African American GFR(CKD) >90 (>60 ml/min/1.73 sqM); Potassium 3.7 mmol/L (3.5-5.1); Sodium 145 mmol/L (137-145); Total Bilirubin 0.2 mg/dL (0.2-1.3); Total Protein 6.7 g/dL (6.3-8.2)
[2021-06-12 09:20] LABS: Alcohol 90 mg/dL
[2021-06-12 09:21] VITALS: RESP 18
[2021-06-12 11:01] LABS: Appearance,Urine Clear (Clear); Bilirubin,Urine Negative (Negative); Blood,Urine Negative (Negative); Color,Urine Yellow; Glucose,Urine (UA) Negative (Negative); Ketones,Urine 1+ (Negative); Leukocyte Esterase,Urine Negative (Negative); Nitrite,Urine Negative (Negative); PH, Urine 6.5 (5.0-8.0); Protein,Urine Trace (Negative); Urobilinogen,Urine <2.0 mg/dL (<2.0)
[2021-06-12 11:37] VITALS: BP 102/62; PULSE 99
== END 2021-06-12 11:37 | disposition home or self-care (01) ==
LOC: EC 06:55
DX: F10.129 Alcohol abuse with intoxication, unspecified (principal); I10 Essential (primary) hypertension; E78.5 Hyperlipidemia, unspecified; F41.9 Anxiety disorder, unspecified; F31.9 Bipolar disorder, unspecified; Z90.49 Acquired absence of other specified parts of digestive tract; Y90.4 Blood alcohol level of 80-99 mg/100 ml
CPT/HCPCS: 99284; 96360; 36415; 80053; 82150; 83605; 83690; 83735; 85025; 81003; G0480; 80320

== ENCOUNTER 2022-02-24 06:39 | Emergency (ER) | payer OTHER ==
[2022-02-24 06:43] VITALS: RESP 18
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
[2022-02-24 07:11] LABS: Basophils # (A) 0.1 k/uL (0-0.2); Basophils % (A) 1 %; Eosinophils # (A) 0.3 k/uL (0-0.7); Eosinophils % (A) 3 %; HCT 42.5 % (39.0-53.0); Lymphocytes # (A) 1.5 k/uL (1.0-4.8); Lymphocytes % (A) 12 %; MCH 33.8 pg (25.0-35.0); MCHC 33.1 g/dL (31.0-37.0); MCV 102.3 fL (80.0-100.0); Macrocytosis Slight; Mean Platelet Volume 7.7; Monocytes # (A) 0.8 k/uL (0-1.0); Monocytes % (A) 6 %; Neutrophils # (A) 9.7 k/uL (1.3-7.7); Neutrophils % (A) 77 %; Platelet Count 309 k/uL (150-450); RBC 4.15 m/uL (4.30-5.90); RDW 13.4 % (11.5-15.5); WBC 12.5 k/uL (3.8-10.6)
[2022-02-24 07:25] LABS: Partial Thromboplastin Time 24.3 sec (22.0-30.0); Prothrombin Time 11.1 sec (9.0-12.0)
--- NOTE | 2022-02-24 07:37 | XR ---
EXAMINATION TYPE: XR chest 2V DATE OF EXAM: 02/24/2022 COMPARISON: 01/27/2021 INDICATION: Difficulty breathing, weakness TECHNIQUE: Frontal and lateral views of the chest are obtained. FINDINGS: The heart size is normal. The pulmonary vasculature is normal. The lungs are clear. Previously right upper lobe density not clearly evident. IMPRESSION: 1. No acute pulmonary process.
[2022-02-24 07:39] LABS: ALT 29 U/L (4-49); AST 38 U/L (17-59); African American GFR (CKD) >90 (>60 ml/min/1.73 sqM); Albumin 4.4 g/dL (3.5-5.0); Alkaline Phosphatase 131 U/L (38-126); Anion Gap 9 mmol/L; Blood Urea Nitrogen 14 mg/dL (9-20); Calcium 8.6 mg/dL (8.4-10.2); Carbon Dioxide 25 mmol/L (22-30); Chloride 105 mmol/L (98-107); Glucose 85 mg/dL (74-99); Non-African American GFR(CKD) 87 (>60 ml/min/1.73 sqM); Potassium 4.2 mmol/L (3.5-5.1); Sodium 139 mmol/L (137-145); Total Bilirubin 0.5 mg/dL (0.2-1.3); Total Protein 7.2 g/dL (6.3-8.2)
--- NOTE | 2022-02-24 09:17 | CT ---
CT CHEST FOR PULMONARY EMBOLISM. EXAMINATION TYPE: CT chest angio for PE DATE OF EXAM: 02/24/2022 INDICATION: Shortness of breath, PE CT DLP: 227.5 mGycm, Automated exposure control for dose reduction was used. CONTRAST: Patient injected with 100 ml mL of Isovue 370. COMPARISON: None TECHNIQUE: CT of the chest is performed on a spiral scan at 2 mm thick sections. Study is performed with intravenous contrast timed for evaluation for pulmonary embolism. This will limit additional po rtions of the evaluation. 3-D MIP images reconstructed by the technologist are reviewed on the compu ter in the coronal and sagittal planes. FINDINGS: No persistent filling defects are evident to suggest an acute pulmonary embolism. No mediastinal or hilar adenopathy enlarged by CT criteria is evident. The ascending aorta diameter at the level of the main pulmonary artery is 2.7 cm. The main pulmonary artery diameter at the bifur cation is 2.5 cm. Lung windows are clear. Limited CT section through the upper abdomen are unremarkable. IMPRESSIONS: 1. No acute pulmonary embolism.
[2022-02-24 09:58] VITALS: BP 138/86; PULSE 80; TEMP 98.5
== END 2022-02-24 09:58 | disposition home or self-care (01) ==
LOC: EC 06:39
DX: J44.9 Chronic obstructive pulmonary disease, unspecified (principal); E78.5 Hyperlipidemia, unspecified; I10 Essential (primary) hypertension
CPT/HCPCS: 36415; 93005; 85379; 80053; 84484; 85025; 85610; 85730; 87635; 71046; 71275; 99285; Q9967

== ENCOUNTER 2025-02-04 01:26 | Emergency (ER) | payer OTHER ==
--- NOTE | 2025-02-04 01:55 | ED ---
General Adult HPI - General Chief complaint: Dental/Oral Stated complaint: Dental Pain Time Seen by Provider: 02/04/25 01:31 Source: patient, EMS, RN notes reviewed, old records reviewed Mode of arrival: EMS - History of Present Illness Initial comments: 59-year-old male presents with complaints of left-sided facial pain. States for the last week he has been having episodes of left-sided facial pain that lasts approximately 1 hour. States he feels it in his left jaw going up to the left temporal region of the scalp behind the eye and below the jaw. States he has tried ibuprofen without much benefit. Reports he does have some blurry vision during these episodes, but between the episodes he has no issues. Denies fevers or any other symptoms at this time unless stated above. - Related Data Home Medications Medication Instructions Recorded Confirmed carBAMazepine [TEGretol] 200 mg PO TID 03/24/15 02/24/22 Atorvastatin Calcium [Lipitor] 40 mg PO HS 06/27/20 02/24/22 Levothyroxine Sodium [Synthroid] 75 mcg PO HS 06/27/20 02/24/22 QUEtiapine FUMARATE [QUEtiapine 400 mg PO HS 06/27/20 02/24/22 FUMARATE ER] Citalopram Hydrobromide 40 mg PO HS 06/12/21 02/24/22 [Citalopram HBr] Previous Rx's Medication Instructions Recorded Azithromycin [Zithromax Z Pack] 0 tab PO DIRECTED #6 tab 02/24/22 predniSONE 50 mg PO DAILY #5 tab 02/24/22 Amoxicillin/Potassium Clav 1 tab PO BID #10 tab 02/04/25 [Amox-Clav 875-125 mg Tablet] Allergies Allergy/AdvReac Type Severity Reaction Status Date / Time No Known Allergies Allergy Verified 02/04/25 01:29 Review of Systems ROS Statement: Those systems with pertinent positive or pertinent negative responses have been documented in the HPI. ROS Other: All systems not noted in ROS Statement are negative. Past Medical History Past Medical History: Hyperlipidemia, Hypertension Additional Past Medical History / Comment(s): arthritis History of Any Multi-Drug Resistant Organisms: None Reported Past Surgical History: Appendectomy Additional Past Surgical History / Comment(s): left hand surgery Past Anesthesia/Blood Transfusion Reactions: No Reported Reaction Past Psychological History: Anxiety, Bipolar, Depression Smoking Status: Current every day smoker Past Alcohol Use History: None Reported Past Drug Use History: None Reported - Past Family History Father Family Medical History: No Reported History Mother Family Medical History: CVA/TIA Additional Family Medical History / Comment(s): Mother had a CVA. She lived into her 90s. General Exam - General Exam Comments Initial Comments: GENERAL: In no apparent distress at the time of examination. Pleasant and cooperative. HEENT: Head is atraumatic, normocephalic. Pupils are equal, round, and reactive to light. Sclerae anicteric. Conjunctivae are clear. Mucus membranes of the mouth are moist. Neck is supple. Upon palpation left submandibular gland feels slightly enlarged, not significantly tender though. RESPIRATORY: Clear to auscultation. No wheezes, rales, or rhonchi. No use of accessory muscles. Patient maintaining oxygen saturation greater than 92%. No chest wall tenderness is noted on palpation or with deep breathing. CARDIOVASCULAR: Regular rate and rhythm. S1 and S2 noted. No systolic or diastolic murmur auscultated. No JVD noted. No S3 or S4 noted. GASTROINTESTINAL: No distention noted. Abdomen soft and round. Normal active bowel sounds auscultated x 4 quadrants. No pain or tenderness noted upon palpation. INTEGUMENTARY: No cyanosis. No jaundice. No rashes noted. No cellulitis noted. EXTREMITIES: 2+ peripheral pulses. No evidence of peripheral edema. No calf tenderness noted. NEUROLOGIC: Cranial nerves II-XII intact. PSYCHIATRIC: Awake, alert, and oriented X 3. Appropriate affect. Intact judgement and insight. Course Vital Signs 02/04/25 01:27 Temperature 97.5 F L Pulse Rate 87 Respiratory 18 Rate Blood Pressure 133/91 O2 Sat by Pulse 96 Oximetry - Reevaluation(s) Reevaluation #1: 02/04/25 04:50 Patient still complaining of pain at this time and is given additional pain medi cation. Lab work comes back within normal limits, including CRP. Medical Decision Making - Medical Decision Making Was pt. sent in by a medical professional or institution (, [facility], EMAIL DEPLOYMENT SPECIALIST, urgent care, hospital, or shelter...) When possible be specific @ -No Did you speak to anyone other than the patient for history (EMS, parent, family, police, friend...)? What history was obtained from this source @ -No Did you review nursing and triage notes (agree or disagree)? Why? @ -I reviewed and agree with nursing and triage notes Were old charts reviewed (outside hosp., previous admission, EMS record, old EKG, old radiological studies, urgent care reports/EKG's, shelter records)? Report findings @ -No old charts were reviewed Differential Diagnosis? @ -Trigeminal neuralgia, dental pathology, TMJ, giant cell arteritis, cluster headaches, maxillary sinusitis, herpes zoster, this is not meant to be a fully inclusive list. EKG interpreted by me (3pts min.). @ -As above X-rays interpreted by me (1pt min.). @ -None done CT interpreted by me (1pt min.). @ -None done U/S interpreted by me (1pt. min.). @ -None done What testing was considered but not performed or refused? (CT, X-rays, U/S, labs)? Why? @ -None What meds were considered but not given or refused? Why? @ -None Did you discuss the management of the patient with other professionals (professionals i.e. , PA, EMAIL DEPLOYMENT SPECIALIST, lab, RT, psych nurse, dialysis social worker, prosthetist, teacher, consular officer, case investigator)? Give summary @ -No Was smoking cessation discussed for >3mins.? @ -No Was critical care preformed (if so, how long)? @ -No Were there social determinants of health that impacted care today? How? (Homelessness, low income, unemployed, alcoholism, drug addiction, trans portation, low edu. Level, literacy, decrease access to med. care, [facility], rehab)? @ -No Was there de-escalation of care discussed even if they declined (Discuss DNR or withdrawal of care, Hospice)? DNR status @ -No What co-morbidities impacted this encounter? (DM, HTN, Smoking, COPD, CAD, Cancer, CVA, ARF, Chemo, Hep., AIDS, mental health diagnosis, sleep apnea, morbid obesity)? @ -None Was patient admitted / discharged? Hospital course, mention meds given and route, prescriptions, significant lab abnormalities, going to OR and other pertinent info. @ -Discharged, 59-year-old male presenting with complaints of left-sided face pain that come and episodes lasting approximately 1 hour. States that it has been going on for about 6 days. Patient had labs drawn including for CRP which came back within normal limits. Patient was given IV Toradol but continued to have pain in further pain medication was given eventually resulting in cessation of his pain. At time of discharge patient was advised to follow-up with his PCP, dentist, and neurology. Though dental infection was not highly suspicious, just to be safe gave patient course of antibiotics to take after discharge. Undiagnosed new problem with uncertain prognosis? @ -No Drug Therapy requiring intensive monitoring for toxicity (Heparin, Nitro, Insulin, Cardizem)? @ -No Were any procedures done? @ -No Diagnosis/symptom? @ -Facial pain Acute, or Chronic, or Acute on Chronic? @ -Default Uncomplicated (without systemic symptoms) or Complicated (systemic symptoms)? @ -Default Side effects of treatment? @ -No Exacerbation, Progression, or Severe Exacerbation? @ -No Poses a threat to life or bodily function? How? (Chest pain, [place], [place], pneumonia, PE, COPD, DKA, ARF, appy, cholecystitis, CVA, Diverticulitis, Homicidal, Suicidal, threat to staff... and all critical care pts) @ -No - Lab Data Result diagrams: 02/04/25 01:56 Lab Results 02/04/25 02/04/25 Range/Units 01:56 01:56 WBC 11.99 H (4.50-10.00) 10*3/uL RBC 4.00 L (4.40-5.60) 10*6/uL Hgb 13.1 (13.0-17.0) g/dL Hct 37.9 L (39.6-50.0) % MCV 94.8 (80.0-97.0) fL MCH 32.8 H (27.0-32.0) pg MCHC 34.6 (32.0-37.0) g/dL Plt Count 307 (140-440) 10*3/uL MPV 10.3 (9.5-12.2) fL Immature Gran % (Auto) 0.3 % Neutrophils % 61.4 % Lymphocytes % 21.5 % Monocytes % 13.2 % Eosinophils % 2.8 % Basophils % 0.8 % Immature Gran # 0.04 (0.00-0.04) 10*3/uL Neutrophils # 7.37 (1.80-7.70) 10*3/uL Lymphocytes # 2.58 (0.90-5.00) 10*3/uL Monocytes # 1.58 H (0.20-1.00) 10*3/uL Eosinophils # 0.33 (0.04-0.35) 10*3/uL Basophils # 0.09 (0.00-0.10) 10*3/uL C-Reactive Protein 0.9 (<1.0) mg/dL Disposition Clinical Impression: Face pain Disposition: HOME SELF-CARE Instructions (If sedation given, give patient instructions): Paresthesia (ED) Prescriptions: Amoxicillin/Potassium Clav [Amox-Clav 875-125 mg Tablet] 1 tab PO BID #10 tab Is patient prescribed a controlled substance at d/c from ED?: No Referrals: Janel Thompson MD [Primary Care Provider] - 1-2 days Karina Cortes DDS [STAFF PHYSICIAN] - 1-2 days Michele Vaughn DO [STAFF PHYSICIAN] - 1-2 days
[2025-02-04] MEDS: KETOROLAC 15 MG/ML 1 ML VIAL IVP STA (02:10)
[2025-02-04 02:14] LABS: Basophils # (A) 0.09 10*3/uL (0.00-0.10); Basophils % (A) 0.8 %; Eosinophils # (A) 0.33 10*3/uL (0.04-0.35); Eosinophils % (A) 2.8 %; HCT 37.9 % (39.6-50.0); HGB 13.1 g/dL (13.0-17.0); Lymphocytes # (A) 2.58 10*3/uL (0.90-5.00); Lymphocytes % (A) 21.5 %; MCH 32.8 pg (27.0-32.0); MCHC 34.6 g/dL (32.0-37.0); MCV 94.8 fL (80.0-97.0); Mean Platelet Volume 10.3 fL (9.5-12.2); Monocytes # (A) 1.58 10*3/uL (0.20-1.00); Monocytes % (A) 13.2 %; Neutrophils # (A) 7.37 10*3/uL (1.80-7.70); Neutrophils % (A) 61.4 %; Platelet Count 307 10*3/uL (140-440); RDW 15.5 % (11.5-14.5); WBC 11.99 10*3/uL (4.50-10.00)
[2025-02-04] MEDS: MORPHINE SULFATE 4 MG/ML SYRINGE IVP STA (04:25)
[2025-02-04] MEDS: LIDOCAINE 4% (PF) 5 ML AMP MISCELLANE ONE (04:39)
[2025-02-04 06:22] VITALS: BP 123/78; PULSE 74; RESP 16; TEMP 98.1
[2025-02-04 08:59] LABS: Erythrocyte Sedimentation Rate 28 mm/Hr (0-20)
== END 2025-02-04 06:24 | disposition home or self-care (01) ==
LOC: EC 01:26
DX: R51.9 Headache, unspecified (principal); F17.200 Nicotine dependence, unspecified, uncomplicated
CPT/HCPCS: 36415; 85652; 85025; 86140; 99283; 96374; 96375; J2270; J1885

== ENCOUNTER 2025-03-08 16:55 | Emergency (ER) | payer OTHER ==
--- NOTE | 2025-03-08 18:20 | ED ---
ENT HPI - General Source: patient Mode of arrival: EMS Limitations: no limitations <Nati Wei - Last Filed: 03/08/25 19:05> <Rafael Thompson - Last Filed: 03/10/25 21:23> - General Chief complaint: ENT Stated complaint: Ear pain Time Seen by Provider: 03/08/25 16:57 - History of Present Illness Initial comments: 59-year-old male with history of hyperlipidemia, hypertension, anxiety, bipolar disorder, depression, current daily smoker here for left ear pain. Patient reported that he has been having left ear free for months and was seen here in February 04 for the same complaint and was noted to have some parotid enlargement. He was given antibiotics for a few days and was advised to see a dentist. Since then he has not been able to see a PCP or a dentist due to insurance issues. His symptoms were stable and intermittent. However about a week ago, his left dental and ear pain started to be worse. He also has an associated congestion, runny nose. He denied fever, sore throat, cough, headache, trismus, difficulty swallowing, ear ringing, gait changes, focal weakness. (Nati Wei) - Related Data Home Medications Medication Instructions Recorded Confirmed carBAMazepine [TEGretol] 200 mg PO TID 03/24/15 02/24/22 Atorvastatin Calcium [Lipitor] 40 mg PO HS 06/27/20 02/24/22 Levothyroxine Sodium [Synthroid] 75 mcg PO HS 06/27/20 02/24/22 QUEtiapine FUMARATE [QUEtiapine 400 mg PO HS 06/27/20 02/24/22 FUMARATE ER] Citalopram Hydrobromide 40 mg PO HS 06/12/21 02/24/22 [Citalopram HBr] Previous Rx's Medication Instructions Recorded Azithromycin [Zithromax Z Pack] 0 tab PO DIRECTED #6 tab 02/24/22 predniSONE 50 mg PO DAILY #5 tab 02/24/22 Amoxicillin/Potassium Clav 1 tab PO BID #10 tab 02/04/25 [Amox-Clav 875-125 mg Tablet] Amoxicillin/Potassium Clav 1 tab PO BID #14 tab 03/08/25 [Amox-Clav 875-125 mg Tablet] Hydrocodone/Acetaminophen 1 each PO Q6H 4 Days #16 tab 03/08/25 [Hydrocodone-Acetamin 2.5-325] HYDROcodone/APAP 5-325MG [[place] 1 tab PO Q4HR PRN 3 Days #18 tab 03/10/25 5-325] Allergies Allergy/AdvReac Type Severity Reaction Status Date / Time No Known Allergies Allergy Verified 02/04/25 01:29 Review of Systems ROS Other: All systems not noted in ROS Statement are negative. <Nati Wei - Last Filed: 03/08/25 19:05> ROS Other: All systems not noted in ROS Statement are negative. <Rafael Thompson - Last Filed: 03/10/25 21:23> ROS Statement: Those systems with pertinent positive or pertinent negative responses have been documented in the HPI. Past Medical History Past Medical History: Hyperlipidemia, Hypertension Additional Past Medical History / Comment(s): arthritis History of Any Multi-Drug Resistant Organisms: None Reported Past Surgical History: Appendectomy Additional Past Surgical History / Comment(s): left hand surgery Past Anesthesia/Blood Transfusion Reactions: No Reported Reaction Past Psychological History: Anxiety, Bipolar, Depression Smoking Status: Current every day smoker Past Alcohol Use History: None Reported Past Drug Use History: None Reported - Past Family History Father Family Medical History: No Reported History Mother Family Medical History: CVA/TIA Additional Family Medical History / Comment(s): Mother had a CVA. She lived into her 90s. <Nati Wei - Last Filed: 03/08/25 19:05> General Exam Limitations: no limitations <Nati Wei - Last Filed: 03/08/25 19:05> - General Exam Comments Initial Comments: Physical examination: Vital signs reviewed General: non toxic, no distress, appears at stated age Head: atraumatic, normocephalic, symmetric Ears: External ear no lesions, rashes, erythema, TM intact bilateral, slight erythema EAC of left ear Neck: Supple, trachea midline, LAD beneath left jaw Mouth: no lip lesion, mucus membranes moist, upper molar and lower border with fillings and cavities noted Cardiovascular: S1S2 reg, no murmur Lungs: CTA bilateral, no rhonchi, no rales, no accessory muscle use Abdominal: soft, nondistended, nontender to palpation, no guarding Ext: muscle strength 5 out of 5 in all 4 extremities grossly, no gross muscle atrophy, no contractures, positive dorsalis pedis pulse bilateral, no edema Neuro: no gross focal neuro deficits Psych: Alert and oriented x3, appropriate affect and mood (Nati Wei) Course <OscarRafael mcmahan - Last Filed: 03/10/25 21:23> Vital Signs 03/08/25 03/08/25 17:09 18:32 Temperature 98.2 F 98.0 F Pulse Rate 66 72 Respiratory 16 18 Rate Blood Pressure 116/78 120/75 O2 Sat by Pulse 95 99 Oximetry - Reevaluation(s) Reevaluation #1: 03/10/25 21:23 I was asked to retransmit prescription to the pharmacy, no other interaction. (Rafael Thompson) Medical Decision Making <Nati Wei - Last Filed: 03/08/25 19:05> - Medical Decision Making Was pt. sent in by a medical professional or institution (, PA, CHIEF OF ANESTHESIOLOGY, urgent care, hospital, or senior care...) When possible be specific @ -No Did you speak to anyone other than the patient for history (EMS, parent, family, police, friend...)? What history was obtained from this source @ -No Did you review nursing and triage notes (agree or disagree)? Why? @ -I reviewed and agree with nursing and triage notes Were old charts reviewed (outside hosp., previous admission, EMS record, old EKG, old radiological studies, urgent care reports/EKG's, senior care records)? Report findings @ -Old charts were reviewed Differential Diagnosis? @ -Differential ear pain: Migraine, tension, cluster, mastoiditis, sinusitis, head injury, dental caries, retropharyngeal abscess, CVA this is not meant to be an all-inclusive list. EKG interpreted by me (3pts min.). @ -None done X-rays interpreted by me (1pt min.). @ -None done CT interpreted by me (1pt min.). @ -None done U/S interpreted by me (1pt. min.). @ -None done What testing was considered but not performed or refused? (CT, X-rays, U/S, labs)? Why? @ -None What meds were considered but not given or refused? Why? @ -None Did you discuss the management of the patient with other professionals (professionals i.e. , PA, CHIEF OF ANESTHESIOLOGY, lab, RT, psych nurse, outreach and education social worker, family readiness support assistant, teacher, education officer, porter sample case)? Give summary @ -Dr. Carpenter, supervising physician Was smoking cessation discussed for >3mins.? @ -No Was critical care preformed (if so, how long)? @ -No Were there social determinants of health that impacted care today? How? (Homelessness, low income, unemployed, alcoholism, drug addiction, transportation, low edu. Level, literacy, decrease access to med. care, intermediate, rehab)? @ -No Was there de-escalation of care discussed even if they declined (Discuss DNR or withdrawal of care, Hospice)? DNR status @ -No What co-morbidities impacted this encounter? (DM, HTN, Smoking, COPD, CAD, Cancer, CVA, ARF, Chemo, Hep., AIDS, mental health diagnosis, sleep apnea, morbid obesity)? @ -None Was patient admitted / discharged? Hospital course, mention meds given and route, prescriptions, significant lab abnormalities, going to OR and other pertinent info. @ -Discharge. Patient did not have any worsening of symptoms throughout stay. Patient advised to see PCP and dentist. Sent home on a few days of Amoxiclav and [place] for the pain. Undiagnosed new problem with uncertain prognosis? @ -No Drug Therapy requiring intensive monitoring for toxicity (Heparin, Nitro, Insulin, Cardizem)? @ -No Were any procedures done? @ -No Diagnosis/symptom? @ -[default] Acute, or Chronic, or Acute on Chronic? @ -[default] Uncomplicated (without systemic symptoms) or Complicated (systemic symptoms)? @ -[default] Side effects of treatment? @ -No Exacerbation, Progression, or Severe Exacerbation? @ -No Poses a threat to life or bodily function? How? (Chest pain, [place], [place], pneumonia, PE, COPD, DKA, ARF, appy, cholecystitis, CVA, Diverticulitis, Homicidal, Suicidal, threat to staff... and all critical care pts) @ -No (Nati Wei) Disposition Is patient prescribed a controlled substance at d/c from ED?: Yes When asked, does pt state using other controlled substances?: Yes If prescribed controlled substance>3 days was MAPS reviewed?: Yes If opioid is for acute pain is fill amount 7 days or less?: Yes If Rx opioid, was Start Talking consent form obtained?: Yes Time of Disposition: 18:18 <Nati Wei - Last Filed: 03/08/25 19:05> Is patient prescribed a controlled substance at d/c from ED?: Yes <OscarmarjRafael - Last Filed: 03/10/25 21:23> Clinical Impression: Pain due to dental caries Disposition: HOME SELF-CARE Condition: Good Additional Instructions: Every disease is a spectrum and a small chance still exists that a serious condition could develop, for this reason, please monitor yourself closely for new, changing or worsening symptoms, symptoms that persist beyond another 72 hours, headache, nausea, vomiting, ear ringing, intractable ear pain, jaw pain and jaw locking, difficulty swallowing, shortness of breath, vision changes, inability to tolerate/keep down fluids or your medications, inability to follow up with outpatient providers as instructed and should you experience these symptoms or should you have any further concerns for your wellbeing please return to the ED or call 911 immediately. PLEASE call your primary care physician and dentist as soon as possible to arrange / discuss plan for followup appointment. Appointment in the next 1-3 days is strongly encouraged if possible. PLEASE let us know here before you leave if there is anything further we can do to be of any assistance. Take care and feel Better! Prescriptions: Amoxicillin/Potassium Clav [Amox-Clav 875-125 mg Tablet] 1 tab PO BID #14 tab Hydrocodone/Acetaminophen [Hydrocodone-Acetamin 2.5-325] 1 each PO Q6H 4 Days #16 tab HYDROcodone/APAP 5-325MG [[place] 5-325] 1 tab PO Q4HR PRN 3 Days #18 tab PRN Reason: Pain Referrals: None,Stated [Primary Care Provider] - 1-2 days Viktor Ngo DMD [STAFF PHYSICIAN] - 1-2 days
[2025-03-08 18:34] VITALS: BP 120/75; PULSE 72; RESP 18; TEMP 98
== END 2025-03-08 18:32 | disposition home or self-care (01) ==
LOC: EC 16:55 → SUPCPDRO 16:55 → EC 18:32
DX: K02.9 Dental caries, unspecified (principal); F17.200 Nicotine dependence, unspecified, uncomplicated
CPT/HCPCS: 99282